=== PATIENT | female | born 1985 | race Caucasian/White ===

== ENCOUNTER → 2022-01-26 | Outpatient (CLI) | payer OTHER ==
--- NOTE | 2022-01-26 12:24 | Diagnostic Imaging Report ---
Indication: Back pain. Time of Exam: 10:33 AM Curvature and alignment is normal. Vertebral body heights and disc spaces are well-maintained. No fracture or subluxation is identified. IMPRESSION: No acute abnormality is detected. Dictated by: Dictated on workstation # [id number]
== END ==
LOC: RAD 10:15
PROVIDERS: ATTEND Anesthesiology Pain Medicine
DX: Z02.71 Encounter for disability determination (principal); M54.50 Low back pain, unspecified
CPT/HCPCS: 72100